=== PATIENT | female | born 1975 | race Caucasian/White ===

== ENCOUNTER 2017-09-13 13:33 | Emergency (ER) | payer SELFPAY ==
[~2017-09-13] VITALS: Ht 320 cm; Wt 74.4 kg
[~2017-09-13 13:33] MED LIST: ACHYD1T PO; ALPR.5T PO; AZIT-21 PO; CALC-656 PO; CEPH500C PO; DCS100C PO; ESTRACE; HYDR-3720 PO; HYDR1CAP2 PO; IBP800T PO; ONDA8TAB6 PO; OXYC-12 PO; OXYC-272 PO; VITA1CAP59 PO; [UNRECOGNIZED DRUG - OTHER] PO
--- OUTSIDE RECORDS SUMMARY | 2017-09-13 13:38 | XMS REPORT | Continuity of Care Document ---
Demographics Preferred Language Unknown Marital Status Unknown [employer] Affiliation Unknown Race Unknown Ethnic Group Unknown Author Author [facility] Organization [facility] Address Unknown Phone Unavailable Allergies There is no data. Medications There is no data. Problems There is no data. Procedures There is no data. Results There is no data. Encounters ACCT No. Visit Date/Time Discharge Status Pt. Type Provider Facility Loc./Unit Complaint [id number] 05/04/2014 09:39:00 05/04/2014 23:59:59 CLS Outpatient
[2017-09-13 14:23] LABS: BILIRUBIN,URINE NEGATIVE (NEGATIVE); CLARITY,URINE CLEAR; COLOR,URINE YELLOW; GLUCOSE, URINE (UA) NEGATIVE (NEGATIVE); KETONES,URINE NEGATIVE (NEGATIVE); LEUKOCYTE ESTERASE ,URINE NEGATIVE (NEGATIVE); NITRITE,URINE NEGATIVE (NEGATIVE); PH,URINE 7 (5-9); PROTEIN,URINE NEGATIVE (NEGATIVE); UROBILINOGEN,URINE NORMAL (NORMAL)
[2017-09-13 14:30] LABS: BACTERIA,URINE NEGATIVE /HPF; WBC,URINE RARE /HPF
--- NOTE | 2017-09-13 14:55 | Diagnostic Imaging Report ---
INDICATION: Right-sided flank pain. FINDINGS: The lungs demonstrate no focal pulmonary infiltrate or evidence of an effusion. There is no pneumothorax. Heart size and mediastinal contours are appropriate. Pulmonary vascularity appears within normal limits. No calcifications are evident within the visualized portion of the upper abdomen. IMPRESSION: 1. No radiographic evidence of an acute cardio pulmonary process. Dictated by: Dictated on workstation # [id number]
[2017-09-13] MEDS ORDERED: TRAM-42 PO (15:41)
--- NOTE | 2017-09-13 15:41 | ED General ---
General Chief Complaint: Back Problems Stated Complaint: LOWER BACK PAIN Nursing Triage Note: C/O rt flank pain worse over the last 2 days. Did complete cipro for kidney infection Wednesday. On prednison and clarocymincin for ear infection. Nursing Sepsis Screen: No Definite Risk Source of Information: Patient Exam Limitations: No Limitations Allergies and Home Medications Allergies Coded Allergies: naproxen (Verified Allergy, Intermediate, RASH...PT CAN TAKE MOTRIN, ) Penicillins (Verified Allergy, Unknown, 08/10/07) Sulfa (Sulfonamide Antibiotics) (Unverified Allergy, Unknown, 09/13/17) clindamycin (Unverified Allergy, Unknown, 09/13/17) latex (Verified Allergy, Unknown, 08/10/07) red dye (Verified Allergy, Unknown, 08/10/07) valdecoxib (Verified Allergy, Unknown, 08/10/07) Home Medications [sprintac] , 1 PO DAILY, (Reported) Past Jcmlxft-Fhkudq-Ijajkp Hx Patient Social History Alcohol Use: Rarely Uses Recreational Drug Use: No Smoking Status: Never a Smoker 2nd Hand Smoke Exposure: No Recent Foreign Travel: No Contact w/Someone Who Travel: No Recent Infectious Disease Expo: No Recent Hopitalizations: No (CHILDBIRTH) Immunizations Up To Date Tetanus Booster (TDap): More than 5yrs Surgeries History of Surgeries: Yes (uterer repair) Respiratory History of Respiratory Disorde: No Cardiovascular History of Cardiac Disorders: No Neurological History of Neurological Disord: No Reproductive System Hx Reproductive Disorders: Yes (MENORRHAGIA AND DYSMENORRHEA) Sexually Transmitted Disease: Yes Genitourinary History of Genitourinary Disor: Yes Genitourinary Disorders: Kidney Infection Gastrointestinal History of Gastrointestinal Di: No Musculoskeletal History of Musculoskeletal Dis: No Endocrine History of Endocrine Disorders: No HEENT History of HEENT Disorders: No Cancer History of Cancer: No Psychosocial History of Psychiatric Problem: No Blood Transfusions History of Blood Disorders: Yes Physical Exam Vital Signs Vital Sign - Last 12Hours 09/13/17 13:56 Temp 98.1 Pulse 91 Resp 18 B/P (MAP) 104/66 (79) Pulse Ox 97 Capillary Refill : Less Than 3 Seconds Progress/Results/Core Measures Suspected Sepsis Recent Fever Within 48 Hours: No Infection Criteria Present: None New/Unexplained Altered Menta: No Sepsis Screen: No Definite Risk Sepsis Diagnosis: SIRS Temperature:98.1 Pulse: 91 Respiratory Rate: 18 Blood Pressure 104 /66 Mean: 79 Results/Orders Lab Results Laboratory Tests Test 09/13/17 14:04 Range/Units Urine Color YELLOW Urine Clarity CLEAR Urine pH 7 5-9 Urine Specific [place] 1.010 L 1.016-1.022 Urine Protein NEGATIVE NEGATIVE Urine Glucose (UA) NEGATIVE NEGATIVE Urine Ketones NEGATIVE NEGATIVE Urine Nitrite NEGATIVE NEGATIVE Urine Bilirubin NEGATIVE NEGATIVE Urine Urobilinogen NORMAL NORMAL MG/DL Urine Leukocyte Esterase NEGATIVE NEGATIVE Urine RBC (Auto) NEGATIVE NEGATIVE Urine RBC NONE /HPF Urine WBC RARE /HPF Urine Squamous Epithelial Cells 5-10 /HPF Urine Crystals NONE /LPF Urine Bacteria NEGATIVE /HPF Urine Casts NONE /LPF Urine Mucus NEGATIVE /LPF Urine Culture Indicated NO My Orders Orders - BHAVIK VEGAS MD Ua Culture If Indicated (09/13/17 14:16) Chest Pa/Lat (2 View) (09/13/17 14:27) Vital Signs/I&O Vital Sign - Last 12Hours 09/13/17 13:56 Temp 98.1 Pulse 91 Resp 18 B/P (MAP) 104/66 (79) Pulse Ox 97 Capillary Refill : Less Than 3 Seconds Blood Pressure Mean: 79 Departure Impression Impression: Primary Impression: Chest wall pain Disposition: 01 HOME, SELF-CARE Condition: Improved Departure-Patient Inst. Decision time for Depature: 15:30 Referrals: BRENNAN MARSHALL MD (PCP/Family) Primary Care Physician Patient Instructions: Chest Pain That Is Not Caused by the Heart (DC) Add. Discharge Instructions: Finish your prescribed medications as directed. You may take ibuprofen up to 600 mg every 6 hours as needed for pain. Add Tylenol (acetaminophen) up to 1000 mg every 6 hours as needed for additional pain relief. Gentle heat may also be helpful. Use Ultram (tramadol) for pain not controlled by ibuprofen and Tylenol. Return to care if symptoms are not improving within a couple of days. Return to care sooner if symptoms worsen. All discharge instructions reviewed with patient and/or family. Voiced understanding. Scripts Tramadol HCl (Ultram) 50 Mg Tablet 50 MG PO Q6H Y for PAIN-MODERATE TO SEVERE, #10 TAB Prov: BHAVIK VEGAS MD 09/13/17 BHAVIK VEGAS MD Sep 13, 2017 15:41
[2017-09-13 15:45] VITALS: BP 106/68
== END 2017-09-13 15:45 | disposition home or self-care (01) ==
LOC: EDUNIT# 13:33 → ER 13:35
DX: R07.89 Other chest pain (principal); Z87.448 Personal history of other diseases of urinary system
CPT/HCPCS: 71046; 81000; 99282

== ENCOUNTER → 2018-12-05 | Outpatient (CLI) | payer SELFPAY ==
[~2018-12-05] MED LIST changes: +TRAM-42 PO
--- NOTE | 2018-12-05 08:26 | Diagnostic Imaging Report ---
INDICATION: Right upper quadrant pain. TECHNIQUE: Multiple grayscale sonographic images were obtained of the right upper quadrant of the abdomen. CORRELATION STUDY: None FINDINGS: LIVER: There is uniform echotexture within the visualized portions of the liver. There is normal, hepatopedal direction of flow within the main portal vein. Liver length at 17 cm. GALLBLADDER: The gallbladder demonstrates no definitive shadowing gallstones. No abnormal gallbladder wall thickening or pericholecystic fluid. COMMON BILE DUCT: Nondilated at 4 mm. PANCREAS: Visualized portions appearing unremarkable. RIGHT KIDNEY: Measures 12.1 x 4.6 x 4.8 cm. No hydronephrosis. AORTA/IVC: Not well visualized. OTHER: None. IMPRESSION: 1. Negative appearing right upper quadrant abdominal ultrasound. Dictated by: Dictated on workstation # [id number]
== END ==
LOC: RAD 07:19
PROVIDERS: ATTEND Family Medicine
DX: R10.11 Right upper quadrant pain (principal)
CPT/HCPCS: 76705

== ENCOUNTER → 2018-12-09 | Outpatient (CLI) | payer OTHER ==
[~2018-12-09] MED LIST changes: +CATHETER FLUSH 10 ML SYR IV PRN
--- NOTE | 2018-12-09 14:47 | Diagnostic Imaging Report ---
Indication: Right upper quadrant pain. Patient was administered 5.5 mCi technetium 99m Choletec intravenously and imaging over the abdomen was performed. After one hour patient ingested 8 ounces of Ensure and a gallbladder ejection fraction was calculated. There is homogeneous uptake of activity by the liver. There is prompt excretion of activity into the common duct and gallbladder. Normal passage of activity into the small bowel is seen. Gallbladder ejection fraction is normal at 43%. Impression: Normal HIDA scan and gallbladder ejection fraction. Dictated by: Dictated on workstation # [id number]
== END ==
LOC: CARD 08:41
PROVIDERS: ATTEND Family Medicine
DX: R10.11 Right upper quadrant pain (principal)
CPT/HCPCS: 78227

== ENCOUNTER → 2019-04-06 | Outpatient (CLI) | payer OTHER ==
[~2019-04-06] MED LIST changes: -CATHETER FLUSH 10 ML SYR IV PRN
--- NOTE | 2019-04-06 21:19 | Diagnostic Imaging Report ---
INDICATION: Palpable abnormality. TECHNIQUE: Limited real-time grayscale images were obtained of the upper outer aspect of the right breast. FINDINGS: There is no evidence of a discrete solid or cystic mass in the right breast. IMPRESSION: Negative targeted ultrasound of the upper outer quadrant of the right breast. ACR BI-RADS Category 1: Negative. Result letter will be mailed to the patient. Note: At least 10% of breast cancer is not imaged by mammography. Dictated by: Dictated on workstation # [id number]
== END ==
LOC: RAD 03-23 10:06
PROVIDERS: ATTEND Surgery
DX: N63.11 Unspecified lump in the right breast, upper outer quadrant (principal); Z53.8 Procedure and treatment not carried out for other reasons

== ENCOUNTER 2019-04-25 16:00 | Emergency (ER) | payer SELFPAY ==
[~2019-04-25] VITALS: Ht 167.6 cm; Wt 81.4 kg
[2019-04-25 16:37] LABS: BILIRUBIN,URINE NEGATIVE (NEGATIVE); CLARITY,URINE CLEAR; COLOR,URINE YELLOW; GLUCOSE, URINE (UA) NEGATIVE (NEGATIVE); KETONES,URINE NEGATIVE (NEGATIVE); LEUKOCYTE ESTERASE ,URINE NEGATIVE (NEGATIVE); NITRITE,URINE NEGATIVE (NEGATIVE); PH,URINE 6 (5-9); PROTEIN,URINE NEGATIVE (NEGATIVE); UROBILINOGEN,URINE NORMAL (NORMAL)
[2019-04-25 16:43] LABS: BASOPHILS % (AUTO) 0 % (0-10); EOSINOPHILS # (AUTO) 0.1 10^3/uL (0.0-0.3); EOSINOPHILS % (AUTO) 2 % (0-10); HEMATOCRIT 43 % (35-52); HEMOGLOBIN 14.5 G/DL (11.5-16.0); LYMPHOCYTES # (AUTO) 2.5 X 10^3 (1.0-4.0); LYMPHOCYTES % (AUTO) 33 % (12-44); MEAN CORPUSCULAR HEMOGLOBIN 32 PG (25-34); MEAN CORPUSCULAR HGB CONC 34 G/DL (32-36); MEAN CORPUSCULAR VOLUME 94 FL (80-99); MEAN PLATELET VOLUME 10.7 FL (7.4-10.4); MONOCYTES # (AUTO) 0.6 X 10^3 (0.0-1.0); MONOCYTES % (AUTO) 8 % (0-12); NEUTROPHILS # (AUTO) 4.2 X 10^3 (1.8-7.8); NEUTROPHILS % (AUTO) 57 % (42-75); PLATELET COUNT 262 10^3/uL (130-400); RED CELL DISTRIBUTION WIDTH 12.6 % (10.0-14.5); WHITE BLOOD COUNT 7.4 10^3/uL (4.3-11.0)
[2019-04-25] MEDS ORDERED: ONDANSETRON 4 MG/2 ML (SDV) Z0FRAN ONE (16:43)
[2019-04-25] MEDS ORDERED: fentaNYL INJECTION 100 MCG/2 ML AMP IVP ONE (16:45)
[2019-04-25] MEDS ORDERED: NS IV 1000 ML 1,000 ML IV SCH (16:45)
--- NOTE | 2019-04-25 16:45 | ED Abdominal Pain ---
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 PT STATES SHE BEGAN EXPERIENCING RUQ ABDOMINAL PAIN THAT RADIATES TO THE RIGHT FLANK. PT STATES SINCE WEDNESDAY SHE HAS GAINED TEN POUNDS ACCORDING TO HER HOME SCALES SINCE WEDNESDAY. Sepsis Screen: Possible Sepsis Risk Source of Information: Patient Exam Limitations: No Limitations History of Present Illness Date Seen by Provider: Apr 25, 2019 Time Seen by Provider: 16:26 Initial Comments Patient presents to ER by private conveyance with a chief complaint that since Wednesday or Wednesday, therefore days ago she did having progressively worsening pain in her right flank radiating through to her right front. She's had her gallbladder worked up in the past and was told she had some stones but has been using omeprazole and dietary changes to control that. She's been followed by Dr. Nieves for that. She has no dysuria, hematuria, discharge. She is having nausea. She rates her pain is about a 7 out of 10 as she rests. She took ibuprofen with minimal relief. She is more concerned because in 2011 she had her ovaries taken out for possible tumors which turned out to be cysts but she said the carlyle placed across to her ureter on the right side and she ended up becoming septic with a ruptured kidney. Subsequently she is been followed at and had a rodriguez rgery to repair her ureter and it and her kidneys and working well and she was released from nephrology and urology's care. She's also had a hysterectomy and a repeat surgery to control bleeding after the hysterectomy in 2017. She also feels she is put on 10 pounds of water weight was some mild trace edema in her legs and around her middle and the past 24-48 hours. No history of coronary disease or congestive heart failure. Allergies and Home Medications Allergies Coded Allergies: naproxen (Verified Allergy, Intermediate, RASH...PT CAN TAKE MOTRIN, 09/13/17) Penicillins (Verified Allergy, Unknown, 08/10/07) Sulfa (Sulfonamide Antibiotics) (Unverified Allergy, Unknown, 09/13/17) clindamycin (Unverified Allergy, Unknown, 09/13/17) latex (Verified Allergy, Unknown, 08/10/07) red dye (Verified Allergy, Unknown, 08/10/07) valdecoxib (Verified Allergy, Unknown, 08/10/07) Home Medications Tramadol HCl 50 Mg Tablet, 50 MG PO Q6H PRN for PAIN-MODERATE TO SEVERE Prescribed by: BHAVIK MARCANO on 09/13/17 1541 [sprintac] , 1 PO DAILY, (Reported) Patient Home Medication List Home Medication List Reviewed: Yes Review of Systems Review of Systems Constitutional: No chills, No diaphoresis EENTM: No Blurred Vision, No Double Vision Respiratory: Denies Cough, Denies Shortness of Air Cardiovascular: Denies Chest Pain, Denies Edema Gastrointestinal: Abdominal Pain; Denies Constipated, Denies Diarrhea; Nausea; Denies Vomiting Genitourinary: Denies Burning, Denies Discharge Musculoskeletal: see HPI, back pain; No joint pain Skin: No change in color, No pruritus Past Mdeskai-Umzded-Bujzcq Hx Patient Social History Alcohol Use: Occasionally Uses Alcohol Beverage of Choice: Beer Recreational Drug Use: No Smoking Status: Current Everyday Smoker Type Used: Cigarettes 2nd Hand Smoke Exposure: No Recent Foreign Travel: No Contact w/Someone Who Travel: No Recent Infectious Disease Expo: No Recent Hopitalizations: No (CHILDBIRTH) Immunizations Up To Date Tetanus Booster (TDap): More than 5yrs Past Medical History Surgeries: Yes (uterer repair) Hysterectomy Respiratory: No Cardiac: No Neurological: No : No Reproductive Disorders: Yes (MENORRHAGIA AND DYSMENORRHEA) CUSTOMER SERVICE SPECIALIST History: Hysterectomy Sexually Transmitted Disease: Yes Genitourinary: Yes Kidney Infection, UTI-Chronic Gastrointestinal: No Musculoskeletal: No Endocrine: No HEENT: No Cancer: No Psychosocial: No Integumentary: No Blood Disorders: Yes Physical Exam Vital Signs Vital Signs - First Documented 04/25/19 16:04 Temp 96.4 Pulse 91 Resp 20 B/P (MAP) 148/93 (111) Pulse Ox 98 O2 Delivery Room Air Capillary Refill : Less Than 3 Seconds Height/Weight/BMI Height: 5'6.00" Weight: 179lbs. 6.0oz. 81.996658xp; 23.04 BMI Method:Stated General Appearance: WD/WN, mild distress HEENT: PERRL/EOMI, normal ENT inspection Neck: full range of motion, supple Respiratory: lungs clear, normal breath sounds, no respiratory distress, no accessory muscle use Cardiovascular: normal peripheral pulses, regular rate, rhythm Gastrointestinal: normal bowel sounds, non tender, soft, no organomegaly Extremities: no calf tenderness, normal capillary refill, pedal edema (trace bilateral ankle) Back: normal inspection, no vertebral tenderness, CVA tenderness (R); No CVA tenderness (L) Neurologic/Psychiatric: alert, normal mood/affect, oriented x 3 Progress/Results/Core Measures Results/Orders Lab Results Laboratory Tests Test 04/25/19 16:15 04/25/19 16:25 Range/Units White Blood Count 7.4 4.3-11.0 10^3/uL Red Blood Count 4.54 4.35-5.85 10^6/uL Hemoglobin 14.5 11.5-16.0 G/DL Hematocrit 43 35-52 % Mean Corpuscular Volume 94 80-99 FL Mean Corpuscular Hemoglobin 32 25-34 PG Mean Corpuscular Hemoglobin Concent 34 32-36 G/DL Red Cell Distribution Width 12.6 10.0-14.5 % Platelet Count 262 130-400 10^3/uL Mean Platelet Volume 10.7 H 7.4-10.4 FL Neutrophils (%) (Auto) 57 42-75 % Lymphocytes (%) (Auto) 33 12-44 % Monocytes (%) (Auto) 8 0-12 % Eosinophils (%) (Auto) 2 0-10 % Basophils (%) (Auto) 0 0-10 % Neutrophils # (Auto) 4.2 1.8-7.8 X 10^3 Lymphocytes # (Auto) 2.5 1.0-4.0 X 10^3 Monocytes # (Auto) 0.6 0.0-1.0 X 10^3 Eosinophils # (Auto) 0.1 0.0-0.3 10^3/uL Basophils # (Auto) 0.0 0.0-0.1 10^3/uL Sodium Level 141 135-145 MMOL/L Potassium Level 4.1 3.6-5.0 MMOL/L Chloride Level 106 98-107 MMOL/L Carbon Dioxide Level 25 21-32 MMOL/L Anion Gap 10 5-14 MMOL/L Blood Urea Nitrogen 10 7-18 MG/DL Creatinine 0.98 0.60-1.30 MG/DL Estimat Glomerular Filtration Rate > 60 BUN/Creatinine Ratio 10 Glucose Level 131 H 70-105 MG/DL Calcium Level 9.2 8.5-10.1 MG/DL Corrected Calcium 9.0 8.5-10.1 MG/DL Total Bilirubin 0.5 0.1-1.0 MG/DL Aspartate Amino Transf (AST/SGOT) 12 5-34 U/L Alanine Aminotransferase (ALT/SGPT) 14 0-55 U/L Alkaline Phosphatase 71 40-136 U/L C-Reactive Protein High Sensitivity 0.13 0.00-0.50 MG/DL Total Protein 7.1 6.4-8.2 GM/DL Albumin 4.2 3.2-4.5 GM/DL Urine Color YELLOW Urine Clarity CLEAR Urine pH 6 5-9 Urine Specific [place] 1.010 L 1.016-1.022 Urine Protein NEGATIVE NEGATIVE Urine Glucose (UA) NEGATIVE NEGATIVE Urine Ketones NEGATIVE NEGATIVE Urine Nitrite NEGATIVE NEGATIVE Urine Bilirubin NEGATIVE NEGATIVE Urine Urobilinogen NORMAL NORMAL MG/DL Urine Leukocyte Esterase NEGATIVE NEGATIVE Urine RBC (Auto) NEGATIVE NEGATIVE Urine RBC RARE /HPF Urine WBC NONE /HPF Urine Crystals NONE /LPF Urine Bacteria TRACE /HPF Urine Casts NONE /LPF Urine Mucus NEGATIVE /LPF Urine Culture Indicated NO My Orders Orders - GIO NEWELL Ua Culture If Indicated (04/25/19 16:03) Cbc With Automated Diff (04/25/19 16:38) Comprehensive Metabolic Panel (04/25/19 16:38) Hs C Reactive Protein (04/25/19 16:38) Ed Iv/Invasive Line Start (04/25/19 16:45) Ns Iv 1000 Ml (Sodium Chloride 0.9%) (04/25/19 16:45) Fentanyl Injection (Sublimaze Injection (04/25/19 16:45) Ondansetron Injection (Zofran Injectio (04/25/19 17:00) Ondansetron Injection (Zofran Injectio (04/25/19 16:43) Ct Abdomen/Pelvis W (04/25/19 17:14) Iohexol Injection (Omnipaque 350 Mg/Ml 1 (04/25/19 17:30) Received Contrast (Hold Metformin- Contr (04/25/19 17:30) Ns (Ivpb) (Sodium Chloride 0.9% Ivpb Bag (04/25/19 17:30) Medications Given in ED Current Medications Medications Dose Ordered Sig/Debbie Route Start Time Stop Time Status Last Admin Dose Admin Fentanyl Citrate 25 mcg ONCE ONCE IVP 04/25/19 16:45 04/25/19 16:47 DC 04/25/19 16:56 25 MCG Ondansetron HCl 8 mg ONCE ONCE IVP 04/25/19 17:00 04/25/19 17:01 DC 04/25/19 16:55 8 MG Vital Signs/I&O 04/25/19 16:04 Temp 96.4 Pulse 91 Resp 20 B/P (MAP) 148/93 (111) Pulse Ox 98 O2 Delivery Room Air Blood Pressure Mean: 111 Diagnostic Imaging Diagonstic Imaging: CT (with IV contrast) Plain Films/CT/US/NM/MRI: abdomen, pelvis Comments NAME: ANUSHA [facility]EN [facility] REC#: [id number] PT STATUS: REG ER : 1975 PHYSICIAN: GIO NEWELL MD ADMIT DATE: 04/25/19/ER Draft Date of Exam:04/25/19 CT ABDOMEN/PELVIS W PROCEDURE: CT abdomen and pelvis with contrast. TECHNIQUE: Multiple contiguous axial images were obtained through the abdomen and pelvis after administration of intravenous contrast. Auto Exposure Controls were utilized during the CT exam to meet ALARA standards for radiation dose reduction. INDICATION: Right upper quadrant pain radiating posteriorly. Patient also complains of nausea and bloating. COMPARISON : Correlation is made with prior CT from 03/01/2012. FINDINGS: The lung bases are clear. No discrete liver mass is detected. Gallbladder is unremarkable. No biliary ductal dilatation is seen. The pancreas and spleen are unremarkable. No adrenal mass is identified. No hydronephrosis. Aorta is nonaneurysmal. The small and large bowel loops appear to be normal in caliber. No obstruction is seen. Uterus appears surgically absent. The bladder is unremarkable. No lymphadenopathy is identified. Bony structures are unremarkable. IMPRESSION: Unremarkable CT of the abdomen and pelvis. No acute feature is detected. Dictated on workstation # [id number] Dict: 04/25/19 1749 Trans: 04/25/19 1754 BAILEY [id number] Interpreted by: CODY ROCHA MD Electronically signed by: Reviewed: Reviewed by Me Departure Impression Primary Impression: Acute right flank pain Disposition: HOME, SELF-CARE Condition: Stable Departure-Patient Inst. Decision time for Depature: 18:04 Referrals: BRENNAN MARSHALL MD (PCP/Family) Primary Care Physician Patient Instructions: Flank Pain (DC) Add. Discharge Instructions: Drink plenty of fluids. Use ibuprofen 800 mg 3 times a day in addition to Tylenol 1000 mg 3 times a day in addition to heat as needed to control your pain. Follow-up with primary care if not seeing some improvement over the next week. Return to the ER for pain becomes intractable or you have nausea vomiting that does not respond to Zofran 1 tablet every 6 hours as needed. All discharge instructions reviewed with patient and/or family. Voiced understanding. Scripts Ondansetron HCl (Zofran) 4 Mg Tab 4 MG PO Q6H PRN for NAUSEA/VOMITING-1ST LINE, #10 TAB 0 Refills Prov: GIO NEWELL 04/25/19 GIO NEWELL Apr 25, 2019 16:44
[2019-04-25 16:47] LABS: BACTERIA,URINE TRACE /HPF; RBC,URINE RARE /HPF
[2019-04-25 16:55] LABS: ALANINE AMINOTRANSFERASE 14 U/L (0-55); ALBUMIN 4.2 GM/DL (3.2-4.5); ALKALINE PHOSPHATASE 71 U/L (40-136); BILIRUBIN,TOTAL 0.5 MG/DL (0.1-1.0); BUN/CREATININE RATIO 10; CALCIUM 9.2 MG/DL (8.5-10.1); CARBON DIOXIDE 25 MMOL/L (21-32); CHLORIDE 106 MMOL/L (98-107); CREATININE SERUM 0.98 MG/DL (0.60-1.30); GFR ESTIMATED > 60; GLUCOSE 131 MG/DL (70-105); POTASSIUM 4.1 MMOL/L (3.6-5.0); SODIUM 141 MMOL/L (135-145); TOTAL PROTEIN 7.1 GM/DL (6.4-8.2)
[2019-04-25] MEDS ORDERED: ONDANSETRON 4 MG/2 ML (SDV) Z0FRAN IVP ONE (17:00)
[2019-04-25] MEDS ORDERED: NS 100 ML (IVPB) BAG IV ONE (17:30)
[2019-04-25] MEDS ORDERED: IOHEXOL 350 MG/ML 100 ML (OMNIPAQUE 350) VIAL IV ONE (17:30)
[2019-04-25] MEDS ORDERED: HOLD METFORMIN - RECEIVED CONTRAST 20 ML VIAL IV SCH (17:30)
--- NOTE | 2019-04-25 17:55 | Diagnostic Imaging Report ---
PROCEDURE: CT abdomen and pelvis with contrast. TECHNIQUE: Multiple contiguous axial images were obtained through the abdomen and pelvis after administration of intravenous contrast. Auto Exposure Controls were utilized during the CT exam to meet ALARA standards for radiation dose reduction. INDICATION: Right upper quadrant pain radiating posteriorly. Patient also complains of nausea and bloating. COMPARISON : Correlation is made with prior CT from 03/01/2012. FINDINGS: The lung bases are clear. No discrete liver mass is detected. Gallbladder is unremarkable. No biliary ductal dilatation is seen. The pancreas and spleen are unremarkable. No adrenal mass is identified. No hydronephrosis. Aorta is nonaneurysmal. The small and large bowel loops appear to be normal in caliber. No obstruction is seen. Uterus appears surgically absent. The bladder is unremarkable. No lymphadenopathy is identified. Bony structures are unremarkable. IMPRESSION: Unremarkable CT of the abdomen and pelvis. No acute feature is detected. Dictated by: Dictated on workstation # [id number]
[2019-04-25] MEDS ORDERED: ONDN4T PO (18:05)
[2019-04-25 18:22] VITALS: BP 116/88
== END 2019-04-25 18:22 | disposition home or self-care (01) ==
LOC: EDUNIT# 16:00 → ER 16:01
DX: R10.11 Right upper quadrant pain (principal); F17.210 Nicotine dependence, cigarettes, uncomplicated; Z87.440 Personal history of urinary (tract) infections; Z90.710 Acquired absence of both cervix and uterus; Z88.0 Allergy status to penicillin; Z88.2 Allergy status to sulfonamides; Z88.1 Allergy status to other antibiotic agents; Z88.6 Allergy status to analgesic agent
CPT/HCPCS: 36415; 74177; 80053; 81000; 85025; 86141

== ENCOUNTER 2019-06-08 06:05 | Day surgery (SDC) | payer OTHER ==
[~2019-06-08] VITALS: Ht 167.7 cm; Wt 77.2 kg
[2019-06-08] VITALS (11 sets, daily range): BP systolic 97–129; BP diastolic 42–82
[~2019-06-08 06:05] MED LIST changes: +ESTR-85 PO; +ESTR1TAB24 PO; +FLUT9.9S NS; +OMEP20CA13 PO; +ONDN4T PO
[2019-06-08] MEDS: LACTATED RINGERS 1,000 ML IV PRN ×2 (06:35→08:32)
[2019-06-08 06:50] LABS: BASOPHILS % (AUTO) 0 % (0-10); EOSINOPHILS # (AUTO) 0.2 10^3/uL (0.0-0.3); EOSINOPHILS % (AUTO) 3 % (0-10); HEMATOCRIT 44 % (35-52); HEMOGLOBIN 14.8 G/DL (11.5-16.0); LYMPHOCYTES % (AUTO) 28 % (12-44); MEAN CORPUSCULAR HEMOGLOBIN 31 PG (25-34); MEAN CORPUSCULAR HGB CONC 34 G/DL (32-36); MEAN CORPUSCULAR VOLUME 93 FL (80-99); MEAN PLATELET VOLUME 10.5 FL (7.4-10.4); MONOCYTES # (AUTO) 1.1 X 10^3 (0.0-1.0); MONOCYTES % (AUTO) 14 % (0-12); NEUTROPHILS # (AUTO) 4.1 X 10^3 (1.8-7.8); NEUTROPHILS % (AUTO) 55 % (42-75); PLATELET COUNT 254 10^3/uL (130-400); RED CELL DISTRIBUTION WIDTH 12.5 % (10.0-14.5); WHITE BLOOD COUNT 7.4 10^3/uL (4.3-11.0)
[2019-06-08] MEDS ORDERED: BUP/EPI 0.25% 1:200,000 (MARCAINE) 10 ML VIAL IJ ONE (07:01)
[2019-06-08] MEDS ORDERED: IOPAMIDOL 61% 30 ML (ISOVUE 300) VIAL IV ONE (07:01)
[2019-06-08] MEDS ORDERED: LIDOCAINE PF 2% 5 ML (XYLOCAINE) VIAL ONE (07:08)
[2019-06-08] MEDS ORDERED: ROCURONIUM 10 MG/ML 5 ML SYRINGE IV ONE (07:08)
[2019-06-08] MEDS ORDERED: ONDANSETRON 4 MG/2 ML (SDV) Z0FRAN ONE ×2 (07:08→09:35)
[2019-06-08] MEDS ORDERED: proPOfol 200 MG/20 ML (DIPRIVAN) VIAL IV ONE (07:08)
[2019-06-08] MEDS ORDERED: MIDAZOLAM 2 MG/2 ML (VERSED) VIAL ONE (07:09)
[2019-06-08] MEDS ORDERED: fentaNYL INJECTION 100 MCG/2 ML AMP ONE ×2 (07:09→09:35)
[2019-06-08] MEDS ORDERED: SEVOFLURANE (ULTANE) 15 ML INHAL SOLN ONE ×3 (07:11→09:06)
[2019-06-08] MEDS ORDERED: NEOSTIGMINE 3 MG/3 ML VIAL ONE (07:34)
[2019-06-08] MEDS ORDERED: GLYCOPYRROLATE 0.2 MG/ML (ROBINUL) 2 ML VIAL ONE (07:34)
--- NOTE | 2019-06-08 07:58 | Progress Note-Pre Operative ---
Pre-Operative Progress Note H&P Reviewed The H&P was reviewed, patient examined and no changes noted. Date Seen by Provider: Jun 08, 2019 Time Seen by Provider: 07:41 Date H&P Reviewed: Jun 08, 2019 Time H&P Reviewed: 07:41 Pre-Operative Diagnosis: ruq abd pain, biliary dyskinesia BREANNA FROST DO Jun 08, 2019 07:58
[2019-06-08] MEDS ORDERED: VANCOMYCIN INJECTION 1,000 MG in NS (IVPB) 250 ML IV SCH (08:00)
--- NOTE | 2019-06-08 09:04 | Progress Note-Post Operative ---
Post-Operative Progess Note Surgeon (s)/Judicial Clerk (s) Surgeon BREANNA FROST DO Judicial Clerk: Dr. Wheeler Pre-Operative Diagnosis ruq abd pain, biliary dyskinesia Post-Operative Diagnosis same Procedure & Operative Findings Date of Procedure 06/08/19 Procedure Performed/Findings lap lior c ioc Anesthesia Type gen Estimated Blood Loss Estimated blood loss (mL): min Specimens/Packing Specimens Removed gallbladder BREANNA FROST DO Jun 08, 2019 09:04
[2019-06-08] MEDS ORDERED: ACHD5005 PO (09:05)
[2019-06-08] MEDS ORDERED: DOCU-143 PO (09:05)
--- NOTE | 2019-06-08 09:06 | Discharge Inst-Simple/Standard ---
Discharge Inst-Standard Discharge Medications New, Converted or Re-Newed RX: RX on Chart Patient Instructions/Follow Up Plan of Care/Instructions/FU: 2 weeks chica Activity as Tolerated: No Discharge Diet: Regular Diet Other Inst to Patient Follow up Appt: Make appointment for 2 weeks. Instructions: No lifting greater than 10 pounds. No strenuous activity. May shower in 24 hours, no tub bath or soaking. Use incentive spirometer at home as directed. No Smoking Skin/Wound Care: You have special glue over incisions it will fall off on its own. Symptoms to Report: Appetite Changes, Extremity Discoloration, Numbness/Tingling, Swelling Increased, Bleeding Excessive, Eyesight Changes, Pain Increased, Urine Color Change, Constipation(Persistent), Fever over 101 degree F, Pain/Pressure in chest, Urinating Difficulty, Cough Up/Vomit Blood, Heart Beat Irreg/Pounding, Pain/Pressure in jaw, Vaginal Bleeding Increase, Cramps in feet or legs, Lightheadedness, Pain/Pressure in shoulder, Diarrhea(Persistent), Memory Changes Suddenly, Questions/Concerns, Weight gain consecutive days, Dizziness/Fainting, Nausea/Vomiting, Shortness of Breath, Weight gain over 2 pounds. If eyes or skin turn yellow notify physician. If questions or concerns contact your physician Or seek help at emergency department. BREANNA FROST DO Jun 08, 2019 09:06
[2019-06-08] MEDS ORDERED: MEPERIDINE (DEMEROL) INJ 50 MG/ML IVP ONE (09:30)
[2019-06-08] MEDS ORDERED: fentaNYL INJECTION 100 MCG/2 ML AMP IVP ONE (09:30)
[2019-06-08] MEDS ORDERED: PROMETHAZINE INJ 25 MG/ML (PHENERGAN) AMP IVP ONE (09:30)
[2019-06-08] MEDS ORDERED: ONDANSETRON 4 MG/2 ML (SDV) Z0FRAN IVP PRN (09:30)
[2019-06-08] MEDS ORDERED: HYDROcodone/APAP 5 MG/325 MG (LORTAB) TAB ONE (10:51)
[2019-06-08] MEDS ORDERED: HYDROcodone/APAP 5 MG/325 MG (LORTAB) TAB PO ONE (11:00)
--- NOTE | 2019-06-08 11:42 | Diagnostic Imaging Report ---
Indication: Fluoroscopy during intraoperative cholangiogram. Fluoroscopy was provided in the OR during intraoperative cholangiogram. 15 seconds of fluoroscopic time was utilized. Images demonstrate contrast being injected via the cystic duct remnant. Intrahepatic and extrahepatic bile ducts are normal in caliber. There are no filling defects. Impression: Fluoroscopy during intraoperative cholangiogram. Dictated by: Dictated on workstation # [id number]
--- NOTE | 2019-06-08 13:26 | Anesthesia-General Post-Op ---
General Patient Condition Mental Status/LOC: Same as Preop Cardiovascular: Satisfactory Nausea/Vomiting: Absent Respiratory: Satisfactory Pain: Controlled Complications: Absent Post Op Complications Complications None Follow Up Care/Instructions Patient Instructions None needed. Anesthesia/Patient Condition Patient Condition Patient is doing well, no complaints, stable vital signs, no apparent adverse anesthesia problems. No complications reported per nursing. CLAUDIO DOVE CRNA Jun 08, 2019 13:26
--- NOTE | 2019-06-08 15:18 | OPERATIVE REPORT ---
DATE OF SERVICE: 06/08/2019 PREOPERATIVE DIAGNOSIS: Right upper quadrant abdominal pain, biliary dyskinesia. POSTOPERATIVE DIAGNOSIS: Right upper quadrant abdominal pain, biliary dyskinesia. PROCEDURE: Laparoscopic cholecystectomy with intraoperative cholangiogram. SURGEON: Breanna Nieves DO [employer] ATTENDANT: Dr. Wheeler, assisted in retraction, dissection and closure. ANESTHESIA: General. ESTIMATED BLOOD LOSS: Minimal. COMPLICATIONS: None. INDICATIONS: The patient is a 43-year-old female, who has been having right upper quadrant abdominal pain symptoms consistent with biliary dyskinesia. She understands risks and benefits of procedure and wished to proceed with procedure. Consent was signed in the chart. DESCRIPTION OF PROCEDURE: The patient was taken to the operating suite, prepped and draped in sterile fashion. Timeout was performed. Local anesthetic was infiltrated at the umbilicus. A 11 blade scalpel was used to make an incision and cautery was used to dissect down to the fascia, which was then scored, grasped and elevated. The abdomen was then entered. A 0 Vicryl was placed in a [id number] fashion for closure at the end of the case. A balloon trocar was inserted and pneumoperitoneum was achieved. Under direct visualization of the laparoscope, a 5 mm trocar was placed in the subxiphoid region and two 5 mm trocars were placed in the right upper quadrant. Gallbladder was grasped and elevated, multiple adhesions up to it. These were taken down, both bluntly and with some cautery dissection. The duodenum was also attached by adhesions, which were bluntly taken down. The cystic duct and cystic artery were then dissected out. Clips were placed on the proximal and distal portion of the cystic artery and distal portion of the cystic duct. The duct was then partially transected. Arrow catheter was inserted and cholangiogram was performed. There were no filling defects. Contrast made its way into the duodenum without difficulty. The catheter was removed. Clips were placed on the proximal portion of the cystic duct and the duct and the artery were then completely transected. Hook cautery was used to dissect the gallbladder from the gallbladder fossa achieving hemostasis. Once removed, it was placed in an Endobag and removed through 12 mm trocar site. Copious amounts of irrigation was used and suctioned and hemostasis was achieved. The abdomen was then desufflated. The trocars were removed. The 0 Vicryl was placed at the beginning of the case was then tied closing the 12 mm fascial defect. The skin was then closed using 4-0 Monocryl in subcuticular fashion. Skin Affix was placed over the incisions. The patient tolerated the procedure well without any complications. She was taken to recovery room in stable condition. Job ID: [id number] DocumentID: [id number] Dictated Date: 06/08/2019 09:17:23 [employer] Machine Operator Date: 06/08/2019 15:18:17 Dictated By: BREANNA NIEVES DO
== END 2019-06-08 11:10 | disposition home or self-care (01) ==
LOC: SDC 06:05
PROVIDERS: ATTEND Surgery
DX: K81.1 Chronic cholecystitis (principal); K82.8 Other specified diseases of gallbladder; K21.9 Gastro-esophageal reflux disease without esophagitis; F17.210 Nicotine dependence, cigarettes, uncomplicated; Z90.710 Acquired absence of both cervix and uterus; Z88.0 Allergy status to penicillin; Z88.2 Allergy status to sulfonamides; Z88.1 Allergy status to other antibiotic agents; Z91.041 Radiographic dye allergy status; Z79.891 Long term (current) use of opiate analgesic; Z91.040 Latex allergy status; Z79.899 Other long term (current) drug therapy; Z83.3 Family history of diabetes mellitus; Z82.49 Family history of ischemic heart disease and other diseases of the circulatory system
CPT/HCPCS: 36415; 85025; 87081; 88304; 94664